=== PATIENT | male | born 1995 | race Two or more races ===

== ENCOUNTER 2024-01-14 16:50 | Emergency (ER) | payer MEDICAID ==
[2024-01-14 17:11] VITALS: BP 131/86; O2SAT 97
--- NOTE | 2024-01-14 17:48 | XRAY Report ---
PROCEDURE: Chest 1V INDICATIONS: cough fever TECHNIQUE: One view of the chest was acquired. COMPARISON: None. FINDINGS: Surgical changes and devices: None. Lungs and pleura: An incomplete inspiratory result is noted, with low lung volumes and crowding of t he vascular markings. No focal infiltrates are seen. No large pneumothorax or large pleural effusion can be seen. Mediastinum: Mediastinal contours appear normal. Heart size is normal. Bones and chest wall: No suspicious bony lesions. Overlying soft tissues appear unremarkable. IMPRESSION: Low lung volumes, without an acute cardiopulmonary abnormality seen. Reviewed by: Roshan Lozoya MD on 01/14/2024 4:47 PM TYLER Approved by: Roshan Lozoya MD on 01/14/2024 4:47 PM TYLER Station ID: [id number]
--- NOTE | 2024-01-14 19:46 | ED Physician Documentation ---
History of Present Illness - Stated complaint Stated Complaint: +COVID/SOA,FEVER - Additonal information Additional information: 28-year-old male with past medical significant for asthma, migraine headache disorder presents with cough, congestion, sore throat. Tested positive for COVID approximately 1 week ago. Since then has had recurrent episodes in which he has felt shortness of breath with wheeze and the need to use his albuterol inhaler. Endorses for fever, chills, body ache. Review of Systems Constitutional: reports: Fever, Chills, Myalgias Eyes: denies: Loss of vision Ears: denies: Loss of hearing Nose: reports: Rhinorrhea / runny nose, Congestion Throat: reports: Sore throat, Swollen tonsils Respiratory: reports: Dyspnea, Cough, Wheezing GI: denies: Nausea, Vomiting PD PAST MEDICAL HISTORY - Past Medical History Past Medical History: Yes Cardiovascular: None Respiratory: Asthma Neuro: None Endocrine/Autoimmune: None GI: None : None HEENT: None Psych: None Musculoskeletal: None Derm: None - Past Surgical History Past Surgical History: No - Present Medications Home Medications: Ambulatory Orders Medication Instructions Recorded Confirmed Albuterol Sulf [Ventolin Hfa 1 - 2 puffs INH Q4HR PRN #1 each 01/14/24 Inhaler] Benzonatate [Tessalon] 200 mg PO TID PRN #30 cap 01/14/24 Codeine Phosphate/Guaifenesin 5 ml PO OAW #50 ml 01/14/24 [Codeine-Guaifen 10-100 mg/5 ml] Ibuprofen [Motrin] 800 mg PO Q8H PRN #30 tablet 01/14/24 predniSONE [Deltasone] 40 mg PO DAILY #10 tablet 01/14/24 - Allergies Allergies/Adverse Reactions: Allergies Allergy/AdvReac Type Severity Reaction Status Date / Time No Known Drug Allergies Allergy Verified 01/14/24 17:03 - Social History Does the pt smoke?: No Smoking Status: Never smoker Does the pt drink ETOH?: No Substance Use and Type: Marijuana PD ED PE NORMAL - Vitals Vital signs reviewed: Yes - General General: Alert and oriented X 3, No acute distress, Well developed/nourished - HEENT HEENT: Atraumatic, Other (Erythematous posterior oropharynx without exudates.) - Neck Neck: Supple, no meningeal sign - Cardiac Cardiac: RRR, No gallop, Strong equal pulses - Respiratory Respiratory: No respiratory distress, Clear bilaterally - Abdomen Abdomen: Normal bowel sounds, Non tender, No organomegaly - Male Male : Deferred - Rectal Rectal: Deferred - Back Back: No CVA TTP, No spinal TTP - Derm Derm: Normal color - Extremities Extremities: No deformity - Neuro Neuro: Alert and oriented X 3, community service manager 2-12 intact, No motor deficit, No sensory deficit, Normal speech Results - Vitals Vitals: Vital Signs - 24 hr 01/14/24 16:57 Temperature 36.8 C Heart Rate 80 Respiratory 20 Rate Blood Pressure 131/86 H O2 Saturation 97 Oxygen O2 Source Room air PD Medical Decision Making - ED course Complexity details: reviewed results, re-evaluated patient, considered differential, d/w patient ED course: 28-year-old male presents with cough, congestion, shortness of breath, hoarse voice in setting SARS COVID infection x 1 week. Afebrile, he medically stable on arrival to the emergency department. Clear aeration in all lung jj. Patient has posterior tonsillar erythema without exudates. Some tender jugulodigastric adenopathy. Chest x-ray negative for pneumonia. Given dose Decadron both for sore throat as well as for management of his reported recurrent asthma exacerbations. Will discharge with medication for symptomatic management including Tessalon, codeine-1 left vaccine, short course prednisone, ibuprofen. Will encourage follow-up with primary care. Clear return precautions given. Departure - Departure Disposition: 01 Home, Self Care Clinical Impression: COVID-19, Asthma exacerbation Instructions: ALBUTEROL Oral Inhaler, DEXAMETHASONE, Oral, ED Viral Syndrome Prescriptions: Albuterol Sulf [Ventolin Hfa Inhaler] 1 - 2 puffs INH Q4HR PRN #1 each PRN Reason: Shortness Of Air/Wheezing Codeine Phosphate/Guaifenesin [Codeine-Guaifen 10-100 mg/5 ml] 5 ml PO OAW #50 ml predniSONE [Deltasone] 40 mg PO DAILY #10 tablet Ibuprofen [Motrin] 800 mg PO Q8H PRN #30 tablet PRN Reason: PAIN &/OR FEVER Benzonatate [Tessalon] 200 mg PO TID PRN #30 cap PRN Reason: Cough Comments: Thank you for allowing us to care for you today at [facility]. Today in the emergency department you were evaluated for any possible dangerous or life-threatening medical emergency. Your chest x-ray does not show any signs of pneumonia which is very reassuring. I have written prescriptions to help with your symptoms including a short course of prednisone, some medication to help with cough during the day as well as a codeine containing cough syrup that can be used at night. Please be aware that the codeine containing cough syrup is both sedating and habit-forming and should not be used if you are operating a motor vehicle, using of the machinery or you are the sole building consultant of young children. Please follow-up with your primary care doctor soon as possible concerning your symptoms. If anytime you develop any new or worsening symptoms please not hesitate to return. Forms: Activity restrictions
[2024-01-14] MEDS: BENZONATATE 100 MG CAPSULE PO STA (19:54)
[2024-01-14] MEDS: DEXAMETHASONE 10 MG/ML VIAL PO STA (19:54)
[2024-01-14] MEDS: CHERRY SYRUP 10 ML UDC PO ONE (19:54)
--- NOTE | 2024-01-15 11:20 | ED Physician Documentation ---
ED Addendum - Addendum Addendum: 01/15/24 11:[address] [facility] pharmacy querying the appropriateness of the codeine as once a week. I canceled this prescription and sent a prescription for guaifenesin codeine elixir 5 to 10 mL p.o. every 6 hours as needed cough number 120 mL.
== END 2024-01-14 20:09 | disposition home or self-care (01) ==
LOC: ED 16:50
DX: U07.1 COVID-19 (principal); J45.901 Unspecified asthma with (acute) exacerbation
CPT/HCPCS: 71045; 99283; 99284; A9270